=== PATIENT | male | born 1995 | race Caucasian/White ===

== ENCOUNTER 2017-04-21 16:16 | Outpatient (CLI) | payer BC ==
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
== END 2017-04-21 16:17 | disposition home or self-care (01) ==
LOC: TBSIIMAG 16:16
PROVIDERS: ATTEND Neurological Surgery
DX: M54.6 Pain in thoracic spine (principal); M54.5 Low back pain
CPT/HCPCS: 72040; 72072; 72110

== ENCOUNTER 2017-05-12 08:14 | Outpatient (CLI) | payer BC | END 2017-05-12 08:15 | disposition home or self-care (01) | LOC: BICMRI 08:14 | PROVIDERS: ATTEND Neurological Surgery | DX: M54.5 Low back pain (principal); M54.6 Pain in thoracic spine; M50.222 Other cervical disc displacement at C5-C6 level | CPT/HCPCS: 70210; 72141; 72146; 72148 ==